=== PATIENT | male | born 1975 | race Two or more races ===

== ENCOUNTER 2023-10-20 22:20 | Emergency (ER) | payer BC, OTHER ==
[~2023-10-20] VITALS: Ht 172.7 cm; Wt 72.7 kg
[2023-10-21 01:28] VITALS: BP 122/76; PULSE 78; RESP 16; TEMP 98.1; O2SAT 96
[2023-10-21] MEDS ORDERED: AUG875T PO (02:59)
[2023-10-21] MEDS: TETANUS-DIPTH-ACEL PERTUSSIS 0.5ML SYR Tdap IM ONE (03:03)
== END 2023-10-21 04:26 | disposition home or self-care (01) ==
LOC: ER 22:20
DX: S62.664A Nondisplaced fracture of distal phalanx of right ring finger, initial encounter for closed fracture (principal); S62.666A Nondisplaced fracture of distal phalanx of right little finger, initial encounter for closed fracture; S61.214A Laceration without foreign body of right ring finger without damage to nail, initial encounter; S61.216A Laceration without foreign body of right little finger without damage to nail, initial encounter; F10.10 Alcohol abuse, uncomplicated; W18.39XA Other fall on same level, initial encounter; Y93.89 Activity, other specified; Y92.89 Other specified places as the place of occurrence of the external cause; Y99.8 Other external cause status
CPT/HCPCS: 12001; 12002; 29130; 73130; 90471; 90715